=== PATIENT | male | born 1980 | race Caucasian/White ===

== ENCOUNTER 2017-08-15 09:46 | Emergency (ER) | payer MEDICARE, MEDICAID ==
[~2017-08-15] VITALS: Ht 167.6 cm; Wt 70.0 kg
[~2017-08-15 09:46] MED LIST: DEPA500T PO; FLUO-1 PO; HYDR50TA94 PO; HYDRO2.5%T TOP
[2017-08-15 09:48] VITALS: BP 121/80; PULSE 91; RESP 17; TEMP 98.4; O2SAT 99
[2017-08-15] MEDS ORDERED: predniSONE 50 MG TAB PO ONE (10:15)
[2017-08-15] MEDS ORDERED: IBUPROFEN 600 MG TAB PO ONE (10:15)
--- NOTE | 2017-08-15 10:20 | PD ---
HPI Chief Complaint: Injury Time Seen by Provider: 10:01 Travel History International Travel<30 days: No Contact w/Intl Traveler<30days: No Traveled to known affect area: No History of Present Illness HPI 36yo M with PMH of seizure disorder on depakote presents to the ED with c/o right hand pain for years. Pain is localized in the shah aspect in midcarpal region below the third digit. Said pain only when you press on it or when he squeezes his hand. Said sometimes there is shooting pain up arm when he squeezes it. Denies any fever, injury, focal weakness or numbness now. Said he went to urgent care and they prescribed him steroids which helped with the pain but he ran out of it 1 month ago. 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 Never had any imaging. Pt was seen here in 2014 and there was a history of carpal tunnel syndrome and pt said he had that and never follow up with hand. Pt has a PMD but has not follow up with PMD either. Said sometimes the right fifth and fourth digit has some numbness and tingling. PFSH Past Medical History Hx Anticoagulant Therapy: No Cardiovascular Problems: No Chemotherapy: No Cerebrovascular Accident: No Diabetes: No Respiratory: No Seizures: Yes Social History Alcohol Use: No Tobacco Use: No Substance Use: No Allergies-Medications (Allergen,Severity, Reaction): Coded Allergies: penicillin V (Unverified Allergy, Unknown, 08/15/17) phenytoin (Unverified Allergy, Unknown, 08/15/17) Reported Meds & Prescriptions Reported Meds & Active Scripts Active Tylenol (Acetaminophen) 325 Mg Tab 650 Mg PO Q6H PRN Deltasone (Prednisone) 20 Mg Tab 20 Mg PO BID 5 Days Review of Systems Except as stated in HPI: all other systems reviewed are Neg Physical Exam Narrative GENERAL: 36yo M not in distress. SKIN: Focused skin assessment warm/dry. HEAD: Atraumatic. Normocephalic. EYES: Pupils equal and round. No scleral icterus. No injection or drainage. ENT: No nasal bleeding or discharge. Mucous membranes pink and moist. NECK: Trachea midline. No JVD. CARDIOVASCULAR: Regular rate and rhythm. No murmur appreciated. RESPIRATORY: No accessory muscle use. Clear to auscultation. Breath sounds equal bilaterally. GASTROINTESTINAL: Abdomen soft, non-tender, nondistended. MUSCULOSKELETAL: Right hand: No open wounds. Radial pulse 2+. Sensation equal and intact in all digits. FROM in all digits. No erythema or edema. + TTP in shah aspect of capitate. NEUROLOGICAL: Awake and alert. No obvious cranial nerve deficits. Motor grossly within normal limits. Normal speech. PSYCHIATRIC: Appropriate mood and affect; insight and judgment normal. Data Data Last Documented VS Vital Signs Date Time Temp Pulse Resp B/P (MAP) Pulse Ox O2 Delivery O2 Flow Rate FiO2 08/15/17 09:48 98.4 91 17 121/80 (94) 99 Room Air Orders Orders Hand, Limited (2vws) (08/15/17 ) Prednisone (Deltasone) (08/15/17 10:15) Ibuprofen (Motrin) (08/15/17 10:15) MDM Medical Decision Making Medical Screen Exam Complete: Yes Emergency Medical Condition: Yes Differential Diagnosis rheumatoid arthritis vs ulnar impingement syndrome vs. carpal tunnel syndrome vs fracture vs. tendonitis Narrative Course 36yo M with right hand pain for years and occasional numbness/tingling in 4th and 5th digit. Denies any trauma. Xray right hand show ulnar negative variance noted at wrist. Right hand series otherwise within normal limits. Pt given ibuprofen and prednisone which helped with pain. Pt does not want wrist splint. Instructed pt to follow up with hand clinic in 2-3 days. Return precautions given. Pt said he has his depakote and does not need refill. Diagnosis Primary Impression: Hand pain, right Referrals: Lambert Greene III, MD 2 days Ulnar negative variance on right wrist. Persistent hand pain. Patient Instructions: General Instructions Departure Forms: Tests/Procedures Additional Instructions: Please follow up with hand clinic in 2 days. Return to the ED if symptoms worsen. Med/Other Pt SpecificInfo: Prescription(s) given Scripts Acetaminophen (Tylenol) 325 Mg Tab 650 MG PO Q6H Y for PAIN SCALE 1 TO 4, #20 TAB 0 Refills Prov: Amy Diaz DO 08/15/17 Prednisone (Deltasone) 20 Mg Tab 20 MG PO BID for 5 Days, #10 TAB 0 Refills Prov: Amy Diaz DO 08/15/17 Disposition: 01 DISCHARGE HOME Condition: Stable Amy Diaz DO Aug 15, 2017 10:20
--- NOTE | 2017-08-15 10:46 | RADRPT ---
EXAM DATE/TIME: 08/15/2017 10:31 [facility] COMPARISON: No previous studies available for comparison. INDICATIONS : Pain in center of palm without trauma. MEDICAL HISTORY : None. SURGICAL HISTORY : None. ENCOUNTER: Initial ACUITY: >1 year PAIN SCORE: 4/10 LOCATION: Right hand, center of palm. FINDINGS: 2 views right hand. 3 mm ulnar negative variance. Bone alignment otherwise within normal limits. No evidence of fracture. Bone mineralization within normal limits. No evidence of joint narrowing. No ev idence of focal bone erosion. CONCLUSION: Ulnar negative variance noted at the wrist. Right hand series otherwise within normal limits. Juan Flood MD on August 15, 2017 at 10:42 Board Certified Radiologist. This report was verified electronically.
[2017-08-15] MEDS ORDERED: PRED-503 PO (11:13)
[2017-08-15] MEDS ORDERED: TYLE325T PO (11:13)
== END 2017-08-15 11:36 | disposition home or self-care (01) ==
LOC: NEPD 09:46
DX: M79.641 Pain in right hand (principal); R20.0 Anesthesia of skin; R20.2 Paresthesia of skin; Z86.69 Personal history of other diseases of the nervous system and sense organs
CPT/HCPCS: 73120; 99283; J7512

== ENCOUNTER 2017-10-29 07:57 | Emergency (ER) | payer MEDICARE, MEDICAID ==
[~2017-10-29] VITALS: Ht 167.6 cm; Wt 65.9 kg
[~2017-10-29 07:57] MED LIST changes: -DEPA500T PO; -FLUO-1 PO; -HYDR50TA94 PO; -HYDRO2.5%T TOP; +PRED-503 PO; +TYLE325T PO
--- NOTE | 2017-10-29 08:08 | PD ---
HPI Chief Complaint: seizure Time Seen by Provider: 08:04 Travel History International Travel<30 days: No Contact w/Intl Traveler<30days: No History of Present Illness HPI 37-year-old male presents after a witnessed tonic-clonic seizure. He states he took his medication last night like he usually does. He states that he takes Depakote for his seizures. He denies any other concurrent complaints at this time but he states he did hit his head. He denies any modifying factors. History is limited as patient does not recall event. History obtained from patient and ambulance staff [facility] Past Medical History Hx Anticoagulant Therapy: No Cardiovascular Problems: No Chemotherapy: No Cerebrovascular Accident: No Diabetes: No Respiratory: No Seizures: Yes Past Surgical History Surgical History: No Previous Surgery Social History Alcohol Use: No Tobacco Use: No Substance Use: No Allergies-Medications (Allergen,Severity, Reaction): Coded Allergies: penicillin V (Verified Allergy, Unknown, 10/29/17) phenytoin (Verified Allergy, Unknown, 10/29/17) Reported Meds & Prescriptions Reported Meds & Active Scripts Active Reported Depakote DR (Divalproex Sodium) 500 Mg Tabdr 500 Mg PO BID Review of Systems Except as stated in HPI: all other systems reviewed are Neg Physical Exam Narrative GENERAL: Well-nourished, well-developed patient. SKIN: Warm and dry. HEAD: Normocephalic and atraumatic. EYES: No injection or drainage. ENT: No nasal drainage noted. NECK: Supple, trachea midline. Nontender to palpation in midline and with range of motion, no meningeal signs CARDIOVASCULAR: Regular rate and rhythm RESPIRATORY: Breath sounds equal bilaterally. No accessory muscle use. GASTROINTESTINAL: Abdomen soft, non-tender, nondistended. BACK: Nontender without obvious deformity with logroll. NEUROLOGICAL: Awake and alert. Motor and sensory grossly within normal limits. Normal speech. Data Data Last Documented VS Vital Signs Date Time Temp Pulse Resp B/P (MAP) Pulse Ox O2 Delivery O2 Flow Rate FiO2 10/29/17 08:34 65 14 115/61 (79) 99 Room Air 10/29/17 08:31 99.2 Orders Orders Complete Blood Count With Diff (10/29/17 08:05) Basic Metabolic Panel (Bmp) (10/29/17 08:05) Alcohol (Ethanol) (10/29/17 08:05) Valproic Acid (Depakene) (10/29/17 08:05) Drug Screen, Random Urine (10/29/17 08:05) Ct Brain W/O Iv Contrast(Rout) (10/29/17 ) Blood Glucose (10/29/17 08:05) Ecg Monitoring (10/29/17 08:05) Iv Access Insert/Monitor (10/29/17 08:05) Oximetry (10/29/17 08:05) Sodium Chloride 0.9% Flush (Ns Flush) (10/29/17 08:15) Lorazepam (Ativan) (10/29/17 08:15) Valproic Acid (Depakene) (10/29/17 10:15) Labs Laboratory Tests Test 10/29/17 08:15 10/29/17 10:48 White Blood Count 7.2 TH/MM3 Red Blood Count 5.38 MIL/MM3 Hemoglobin 13.5 GM/DL Hematocrit 41.7 % Mean Corpuscular Volume 77.6 FL Mean Corpuscular Hemoglobin 25.2 PG Mean Corpuscular Hemoglobin Concent 32.4 % Red Cell Distribution Width 14.9 % Platelet Count 259 TH/MM3 Mean Platelet Volume 9.3 FL Neutrophils (%) (Auto) 55.9 % Lymphocytes (%) (Auto) 32.3 % Monocytes (%) (Auto) 8.6 % Eosinophils (%) (Auto) 2.7 % Basophils (%) (Auto) 0.5 % Neutrophils # (Auto) 4.1 TH/MM3 Lymphocytes # (Auto) 2.3 TH/MM3 Monocytes # (Auto) 0.6 TH/MM3 Eosinophils # (Auto) 0.2 TH/MM3 Basophils # (Auto) 0.0 TH/MM3 CBC Comment AUTO DIFF Differential Comment AUTO DIFF CONFIRMED Ovalocytes 2+ Blood Urea Nitrogen 17 MG/DL Creatinine 1.25 MG/DL Random Glucose 70 MG/DL Calcium Level 8.4 MG/DL Sodium Level 139 MEQ/L Potassium Level 4.6 MEQ/L Chloride Level 107 MEQ/L Carbon Dioxide Level 18.6 MEQ/L Anion Gap 13 MEQ/L Estimat Glomerular Filtration Rate 65 ML/MIN Valproic Acid (Depakene) Level LESS THAN 3 MCG/ML Ethyl Alcohol Level LESS THAN 3 MG/DL Urine Opiates Screen NEG Urine Barbiturates Screen NEG Urine Amphetamines Screen NEG Urine Benzodiazepines Screen NEG Urine Cocaine Screen NEG Urine Cannabinoids Screen NEG MDM Medical Decision Making Medical Screen Exam Complete: Yes Emergency Medical Condition: Yes Medical Record Reviewed: Yes (past history confirmed) Interpretation(s) CBC & BMP Diagram 10/29/17 08:15 Calcium Level 8.4 L Last [address] 10/29/17 0000 Signed Impressions: Service Date/Time: October 08:16 - CONCLUSION: Normal noncontrast head CT. Stu Villafana MD Patient has no Depakote in his system Differential Diagnosis Seizure, hyponatremia, intracranial.... Narrative Course Will check blood work, CT brain and dose with 1 mg of Ativan by mouth and reevaluate Lab work reveals patient has not been taking his Depakote which he now admits to because he hasn't had a seizure for a while. We'll give first dose here and have him restart this medication.Patient denies any new complaints and states that they are feeling better. Patient happy with care, all questions answered. Patient knows that follow up is incumbent on them and to return to the emergency room immediately if new or worsening symptoms develop. Patient given strict return precautions, vitals reviewed and are normal, agrees to further workup as an outpatient. Diagnosis Primary Impression: Seizure Patient Instructions: General Instructions Additional Instructions: follow with neurology thursday, return as needed, DO NOT drive, TAKE your MEDICATIONS Med/Other Pt SpecificInfo: Prescription(s) given Scripts Divalproex (Depakote ) 500 Mg Tabdr 500 MG PO BID for Control Seizures for 14 Days, #28 TAB 0 Refills Prov: Callie Esparza MD 10/29/17 Disposition: 01 DISCHARGE HOME Condition: Stable Callie Esparza MD Oct 29, 2017 08:08
[2017-10-29] MEDS ORDERED: DEPA500T PO ×2 (08:09→11:44)
[2017-10-29] MEDS ORDERED: LORazepam 1 MG TAB PO ONE (08:15)
[2017-10-29] MEDS ORDERED: SODIUM CHLORIDE 0.9% FLUSH 10 ML FLUSH IVF PRN (08:15)
--- NOTE | 2017-10-29 08:24 | RADRPT ---
EXAM DATE/TIME: 10/29/2017 08:16 [facility] COMPARISON: No previous studies available for comparison. INDICATIONS : Seizure, altered mental status RADIATION DOSE: 56.35 CTDIvol (mGy) MEDICAL HISTORY : Seizures. SURGICAL HISTORY : None. ENCOUNTER: Initial ACUITY: 1 day PAIN SCALE: 3/10 LOCATION: cranial TECHNIQUE: Multiple contiguous axial images were obtained of the head. Using automated exposure control and adj ustment of the mA and/or kV according to patient size, radiation dose was kept as low as reasonably a chievable to obtain optimal diagnostic quality images. DICOM format image data is available electro nically for review and comparison. FINDINGS: CEREBRUM: The ventricles are normal for age. No evidence of midline shift, mass lesion, hemorrhage or acute in farction. No extra-axial fluid collections are seen. POSTERIOR FOSSA: The cerebellum and brainstem are intact. The 4th ventricle is midline. The cerebellopontine angle i s unremarkable. EXTRACRANIAL: The visualized portion of the orbits is intact. SKULL: The calvaria is intact. No evidence of skull fracture. CONCLUSION: Normal noncontrast head CT. Stu Villafana MD on October 29, 2017 at 8:21 Board Certified Radiologist. This report was verified electronically.
[2017-10-29 08:31] VITALS: BP 115/61; PULSE 68; RESP 15; TEMP 99.2; O2SAT 98
[2017-10-29 08:34] VITALS: BP 115/61; PULSE 65; RESP 14; O2SAT 99
[2017-10-29 08:40] LABS: AUTOMATED NEUTROPHIL # 4.1 TH/MM3 (1.8-7.7); BASOPHIL % 0.5 % (0.0-2.0); EOSINOPHIL # 0.2 TH/MM3 (0-0.4); EOSINOPHIL % 2.7 % (0.0-4.0); HEMATOCRIT 41.7 % (39.0-51.0); HEMOGLOBIN 13.5 GM/DL (13.0-17.0); LYMPH % 32.3 % (9.0-44.0); LYMPHOCYTE # 2.3 TH/MM3 (1.0-4.8); MEAN CELL VOLUME 77.6 FL (80.0-100.0); MEAN CORPUSCULAR HEMOGLOBIN 25.2 PG (27.0-34.0); MEAN CORPUSCULAR HGB CONC 32.4 % (32.0-36.0); MEAN PLATELET VOLUME 9.3 FL (7.0-11.0); MONO % 8.6 % (0.0-8.0); MONOCYTE # 0.6 TH/MM3 (0-0.9); NEUT % 55.9 % (16.0-70.0); PLATELET COUNT 259 TH/MM3 (150-450); RED BLOOD COUNT 5.38 MIL/MM3 (4.50-5.90); RED CELL DISTRIBUTION WIDTH 14.9 % (11.6-17.2); WHITE BLOOD COUNT 7.2 TH/MM3 (4.0-11.0)
[2017-10-29 09:01] LABS: BICARBONATE 18.6 MEQ/L (21.0-32.0); BLOOD UREA NITROGEN 17 MG/DL (7-18); CALCIUM 8.4 MG/DL (8.5-10.1); CHLORIDE 107 MEQ/L (98-107); CREATININE 1.25 MG/DL (0.60-1.30); GLOMERULAR FILTRATION RATE 65 ML/MIN (>89); GLUCOSE,RANDOM 70 MG/DL (74-106); SODIUM (NA) 139 MEQ/L (136-145)
[2017-10-29 09:45] LABS: OVALOCYTES 2+ (NORMAL)
[2017-10-29] MEDS ORDERED: VALPROIC ACID 250 MG CAP PO ONE (10:15)
== END 2017-10-29 12:54 | disposition home or self-care (01) ==
LOC: NEPE 07:57
DX: R56.9 Unspecified convulsions (principal); Z88.0 Allergy status to penicillin; Z88.8 Allergy status to other drugs, medicaments and biological substances; Z79.899 Other long term (current) drug therapy
CPT/HCPCS: 70450; 80048; 80164; 80307; 85025; 99284